=== PATIENT | male | born 1955 | race Caucasian/White ===

== ENCOUNTER → 2019-06-16 | Outpatient (CLI) | payer MEDICARE ==
[2019-06-16 13:52] LABS: Basophils # (auto) 0.1 uL; Basophils % (auto) 1.2 % (0.0-2.0); Eosinophils # (auto) 0.1 uL; Eosinophils % (auto) 1.5 % (0.0-7.0); Hematocrit 44.1 % (41.0-53.0); Hemoglobin 15.2 g/dL (13.5-17.5); Lymphocytes # (auto) 1.7 uL; Lymphocytes % (auto) 26.4 % (10.0-50.0); Mean Corpuscular Hemoglobin 30.8 pg (28.0-32.0); Mean Corpuscular Hgb Conc. 34.4 g/dL (32.0-36.0); Mean Corpuscular Volume 89.6 fL (80.0-100.0); Monocytes # (auto) 0.6 uL; Monocytes % (auto) 8.5 % (0.0-12.0); Neutrophils # (auto) 4.1 uL; Neutrophils % (auto) 62.4 % (37.0-80.0); Platelet Count (auto) 225 10^3/uL (140-450); Red Blood Cells 4.92 10^6/uL (4.5-5.90); Red Cell Distribution Width 13.6 % (11.8-14.3); White Blood Cell 6.5 10^3/uL (4.4-10.8)
[2019-06-16 14:33] LABS: Albumin 3.9 g/dL (3.4-5.0); Calcium 8.7 mg/dL (8.5-10.1); Potassium 3.7 mmol/L (3.5-5.1)
[2019-06-16 14:38] LABS: BUN/Creatinine Ratio 12.4; Bilirubin, Total 0.7 mg/dL (0.2-1.0); Total Protein 7.7 g/dL (6.4-8.2)
== END | disposition home or self-care (01) ==
LOC: LAB 13:19
PROVIDERS: ATTEND Internal Medicine
DX: N40.1 Benign prostatic hyperplasia with lower urinary tract symptoms (principal); E78.5 Hyperlipidemia, unspecified; K21.9 Gastro-esophageal reflux disease without esophagitis
CPT/HCPCS: 36415; 80053; 80061; 84153; 84443; 85025

== ENCOUNTER → 2019-06-23 | Outpatient (CLI) | payer MEDICARE | END | disposition home or self-care (01) | LOC: LAB 13:43 | PROVIDERS: ATTEND Internal Medicine | DX: E78.5 Hyperlipidemia, unspecified (principal); N40.0 Benign prostatic hyperplasia without lower urinary tract symptoms; K21.9 Gastro-esophageal reflux disease without esophagitis | CPT/HCPCS: 82270 ==

== ENCOUNTER 2021-03-08 11:30 | Inpatient (IN) | payer OTHER ==
[~2021-03-08] VITALS: Ht 177.8 cm; Wt 79.6 kg
[2021-03-08] MEDS ORDERED: ONDANSETRON HCL 4 MG/2 ML VIAL IV ONE (11:45)
[2021-03-08] MEDS ORDERED: SODIUM CHLORIDE 0.9% 500 ML IVB ONE (11:45)
[2021-03-08] MEDS ORDERED: MORPHINE SULFATE 4 MG/ML SYR/VIAL IV ONE (11:45)
[2021-03-08] MEDS ORDERED: metroNIDAZOLE 500MG/100ML 100 ML IV ONE (12:15)
[2021-03-08 12:25] LABS: Basophils # (auto) 0 10 ^3/uL (0-0.2); Basophils % (auto) 0.1 % (0.0-2.0); Eosinophils # (auto) 0 10 ^3/uL (0-0.8); Hematocrit 44.2 % (41.0-53.0); Hemoglobin 15.1 g/dL (13.5-17.5); Lymphocytes # (auto) 0.9 10 ^3/uL (0.4-5.4); Lymphocytes % (auto) 4.5 % (10.0-50.0); Mean Corpuscular Hemoglobin 30.7 pg (28.0-32.0); Mean Corpuscular Hgb Conc. 34.2 g/dL (32.0-36.0); Mean Corpuscular Volume 89.6 fL (80.0-100.0); Monocytes # (auto) 1.2 10 ^3/uL (0-1.3); Monocytes % (auto) 6.2 % (0.0-12.0); Neutrophils # (auto) 17.9 10 ^3/uL (1.6-8.6); Neutrophils % (auto) 89.2 % (37.0-80.0); Nucleated Red Blood Cells % 0.1 %; Platelet Count (auto) 242 10^3/uL (140-450); Red Blood Cells 4.93 10^6/uL (4.5-5.90)
[2021-03-08 12:30] LABS: Albumin 4.1 g/dL (3.4-5.0); Potassium 3.7 mmol/L (3.5-5.1)
[2021-03-08 12:33] LABS: Bilirubin, Total 1.4 mg/dL (0.2-1.0); Total Protein 8.4 g/dL (6.4-8.2)
[2021-03-08 12:53] LABS: Urine Bacteria NONE SEEN /hpf (None Seen); Urine Blood Negative /uL (Negative); Urine Mucus FEW (None Seen); Urine Specific Gravity 1.024 (1.001-1.035); Urine WBC 2 /hpf (0 - 3)
[2021-03-08] MEDS ORDERED: OMEP10CA58 PO (13:05)
[2021-03-08] MEDS ORDERED: HYDROcodone-ACET 5/325MG TAB PO PRN (13:30)
[2021-03-08] MEDS ORDERED: ACETAMINOPHEN 325 MG TAB PO PRN (13:30)
[2021-03-08] MEDS: SODIUM CHLORIDE 0.9% 1,000 ML IV SCH ×2 (13:30→20:57)
[2021-03-08] MEDS ORDERED: MORPHINE SULF INJ 2 MG/ML SYRINGE 1ML IV PRN (13:30)
[2021-03-08] MEDS ORDERED: ONDANSETRON HCL 4 MG/2 ML VIAL IV PRN (13:30)
[2021-03-08] MEDS: cefTRIAXone 1GM/50ML D5W 50 ML IV SCH (15:00)
[2021-03-08 17:20] VITALS: BP 125/72
[2021-03-08 22:13] VITALS: BP 129/84
[2021-03-08] MEDS: metroNIDAZOLE 500MG/100ML 100 ML IV SCH (22:16)
[2021-03-09 05:02] VITALS: BP 121/83
[2021-03-09] MEDS: metroNIDAZOLE 500MG/100ML 100 ML IV SCH ×3 (05:35→20:58)
[2021-03-09] MEDS: SODIUM CHLORIDE 0.9% 1,000 ML IV SCH ×3 (05:35→18:19)
[2021-03-09 07:12] LABS: Basophils # (auto) 0 10 ^3/uL (0-0.2); Basophils % (auto) 0.1 % (0.0-2.0); Eosinophils # (auto) 0 10 ^3/uL (0-0.8); Eosinophils % (auto) 0.1 % (0.0-7.0); Hematocrit 37.3 % (41.0-53.0); Hemoglobin 12.9 g/dL (13.5-17.5); Lymphocytes # (auto) 1.4 10 ^3/uL (0.4-5.4); Mean Corpuscular Hgb Conc. 34.5 g/dL (32.0-36.0); Monocytes # (auto) 1.2 10 ^3/uL (0-1.3); Monocytes % (auto) 7.5 % (0.0-12.0); Neutrophils % (auto) 83.3 % (37.0-80.0); Platelet Count (auto) 194 10^3/uL (140-450); Red Blood Cells 4.14 10^6/uL (4.5-5.90); Red Cell Distribution Width 13.5 % (11.8-14.3); White Blood Cell 15.6 10^3/uL (4.4-10.8)
[2021-03-09 07:28] LABS: BUN/Creatinine Ratio 17.1; Potassium 3.6 mmol/L (3.5-5.1)
[2021-03-09 08:00] VITALS: BP 113/66
[2021-03-09 09:00] VITALS: BP 113/66
[2021-03-09] MEDS: cefTRIAXone 1GM/50ML D5W 50 ML IV SCH (09:16)
[2021-03-09] MEDS: PANTOPRAZOLE 40 MG/10 ML VIAL INJ IV SCH (10:25)
[2021-03-09 13:00] VITALS: BP 123/75
[2021-03-09 16:12] VITALS: BP 128/75
[2021-03-09 22:00] VITALS: BP 140/64
[2021-03-10] MEDS: SODIUM CHLORIDE 0.9% 1,000 ML IV SCH ×2 (05:09→13:30)
[2021-03-10 05:24] VITALS: BP 134/71
[2021-03-10] MEDS: metroNIDAZOLE 500MG/100ML 100 ML IV SCH ×2 (05:54→13:44)
[2021-03-10 07:05] LABS: Basophils # (auto) 0 10 ^3/uL (0-0.2); Basophils % (auto) 0.4 % (0.0-2.0); Eosinophils # (auto) 0.1 10 ^3/uL (0-0.8); Hematocrit 35.9 % (41.0-53.0); Hemoglobin 12.5 g/dL (13.5-17.5); Lymphocytes # (auto) 1.4 10 ^3/uL (0.4-5.4); Lymphocytes % (auto) 13.4 % (10.0-50.0); Mean Corpuscular Hgb Conc. 34.7 g/dL (32.0-36.0); Mean Corpuscular Volume 89.3 fL (80.0-100.0); Monocytes # (auto) 0.9 10 ^3/uL (0-1.3); Monocytes % (auto) 8.5 % (0.0-12.0); Neutrophils # (auto) 7.8 10 ^3/uL (1.6-8.6); Neutrophils % (auto) 76.7 % (37.0-80.0); Platelet Count (auto) 199 10^3/uL (140-450); Red Blood Cells 4.02 10^6/uL (4.5-5.90); Red Cell Distribution Width 13.6 % (11.8-14.3); White Blood Cell 10.1 10^3/uL (4.4-10.8)
[2021-03-10 07:20] LABS: Calcium 7.7 mg/dL (8.5-10.1); Potassium 3.6 mmol/L (3.5-5.1)
[2021-03-10 07:24] LABS: BUN/Creatinine Ratio 12.5
[2021-03-10 08:00] VITALS: BP 130/69
[2021-03-10] MEDS: cefTRIAXone 1GM/50ML D5W 50 ML IV SCH (08:52)
[2021-03-10 09:00] VITALS: BP 130/69
[2021-03-10] MEDS: PANTOPRAZOLE 40 MG/10 ML VIAL INJ IV SCH (10:28)
[2021-03-10 12:51] VITALS: BP 132/69
[2021-03-10 14:39] VITALS: BP 132/69
== END 2021-03-10 16:35 | disposition home or self-care (01) | DRG 392 ==
LOC: ER 11:30 → OVERFLOW 13:22 → OBSVTOIN 13:23 → WEST WING 17:38
PROVIDERS: ADMIT Internal Medicine; ATTEND Internal Medicine
DX: K57.32 Diverticulitis of large intestine without perforation or abscess without bleeding (principal); K80.20 Calculus of gallbladder without cholecystitis without obstruction; K21.9 Gastro-esophageal reflux disease without esophagitis; Z20.822 Contact with and (suspected) exposure to COVID-19; D72.829 Elevated white blood cell count, unspecified; I70.8 Atherosclerosis of other arteries; K44.9 Diaphragmatic hernia without obstruction or gangrene; Z82.5 Family history of asthma and other chronic lower respiratory diseases; Z83.3 Family history of diabetes mellitus
CPT/HCPCS: 36415; 74176; 80048; 80053; 80061; 81001; 82306; 83036; 83690; 84484; 85025; 87426; 93005; C9113; G0378; J0696; J2405; J3490

== ENCOUNTER 2021-07-07 13:00 | Day surgery (SDC) | payer OTHER ==
[2021-07-04 14:48] LABS: Basophils # (auto) 0.1 10 ^3/uL (0-0.2); Basophils % (auto) 0.9 % (0.0-2.0); Eosinophils # (auto) 0.2 10 ^3/uL (0-0.8); Eosinophils % (auto) 2.2 % (0.0-7.0); Hemoglobin 14.6 g/dL (13.5-17.5); Lymphocytes # (auto) 1.9 10 ^3/uL (0.4-5.4); Lymphocytes % (auto) 25.7 % (10.0-50.0); Mean Corpuscular Hemoglobin 30.6 pg (28.0-32.0); Mean Corpuscular Hgb Conc. 34.8 g/dL (32.0-36.0); Mean Corpuscular Volume 87.9 fL (80.0-100.0); Monocytes # (auto) 0.7 10 ^3/uL (0-1.3); Monocytes % (auto) 9.1 % (0.0-12.0); Neutrophils # (auto) 4.7 10 ^3/uL (1.6-8.6); Neutrophils % (auto) 62.1 % (37.0-80.0); Nucleated Red Blood Cells % 0.1 %; Red Blood Cells 4.78 10^6/uL (4.5-5.90); Red Cell Distribution Width 13.6 % (11.8-14.3); White Blood Cell 7.5 10^3/uL (4.4-10.8)
[2021-07-04 15:16] LABS: Alanine Aminotransferase 31 U/L (16-61); Albumin 3.6 g/dL (3.4-5.0); Anion Gap 9 (5-15); Aspartate Aminotransferase 20 U/L (15-37); BUN/Creatinine Ratio 16.7; Blood Urea Nitrogen 15 mg/dL (7-18); Calcium 8.6 mg/dL (8.5-10.1); Carbon Dioxide 23 mmol/L (21-32); Chloride 109 mmol/L (98-107); GFR African American 108 mL/min; GFR Non-African American 89 mL/min; Glucose 102 mg/dL (74-106); Potassium 3.9 mmol/L (3.5-5.1); Sodium 141 mmol/L (136-145)
[2021-07-04 15:19] LABS: Alkaline Phosphatase 72 U/L (45-117); Bilirubin, Total 0.4 mg/dL (0.2-1.0); Total Protein 7.5 g/dL (6.4-8.2)
[~2021-07-07] VITALS: Ht 177.8 cm; Wt 74.8 kg
[~2021-07-07 13:00] MED LIST: OMEP10CA58 PO
[2021-07-07] MEDS ORDERED: SODIUM CHLORIDE LOCK 10 ML ONE (13:28)
[2021-07-07] MEDS: fentaNYL CITRATE 100 MCG/2 ML VL ONE ×2 (13:40→13:43)
[2021-07-07] MEDS: diphenhdrAMINE HCL 50 MG/1 ML VL ONE ×2 (13:40→13:43)
[2021-07-07] MEDS: MIDAZOLAM HCL 5 MG/ML-1ML VIAL ONE ×3 (13:40→13:46)
[2021-07-07 14:30] VITALS: BP 118/84
== END 2021-07-07 14:35 | disposition home or self-care (01) ==
LOC: GI 13:00
PROVIDERS: ATTEND Internal Medicine Gastroenterology
DX: Z12.11 Encounter for screening for malignant neoplasm of colon (principal); K57.30 Diverticulosis of large intestine without perforation or abscess without bleeding; K64.8 Other hemorrhoids; K52.89 Other specified noninfective gastroenteritis and colitis; K21.9 Gastro-esophageal reflux disease without esophagitis; Z98.890 Other specified postprocedural states; Z79.899 Other long term (current) drug therapy; Z20.822 Contact with and (suspected) exposure to COVID-19
CPT/HCPCS: 36415; 45380; 80053; 85025; 88305; J1200; J2250; J3010; J7030; U0003; 99152

== ENCOUNTER → 2021-12-08 | Outpatient (CLI) | payer OTHER ==
[2021-12-08 11:23] LABS: Basophils # (auto) 0.1 10 ^3/uL (0-0.2); Eosinophils # (auto) 0.2 10 ^3/uL (0-0.8); Eosinophils % (auto) 2.1 % (0.0-7.0); Hematocrit 43.4 % (41.0-53.0); Hemoglobin 15.3 g/dL (13.5-17.5); Lymphocytes # (auto) 1.9 10 ^3/uL (0.4-5.4); Lymphocytes % (auto) 24.3 % (10.0-50.0); Mean Corpuscular Hemoglobin 31.1 pg (28.0-32.0); Mean Corpuscular Hgb Conc. 35.2 g/dL (32.0-36.0); Mean Corpuscular Volume 88.5 fL (80.0-100.0); Monocytes # (auto) 0.7 10 ^3/uL (0-1.3); Monocytes % (auto) 8.4 % (0.0-12.0); Neutrophils % (auto) 64.2 % (37.0-80.0); Red Blood Cells 4.91 10^6/uL (4.5-5.90); Red Cell Distribution Width 13.6 % (11.8-14.3); White Blood Cell 7.8 10^3/uL (4.4-10.8)
[2021-12-08 11:59] LABS: Albumin 4.2 g/dL (3.4-5.0); Calcium 9.3 mg/dL (8.5-10.1)
[2021-12-08 12:03] LABS: BUN/Creatinine Ratio 15.4; Bilirubin, Total 0.9 mg/dL (0.2-1.0); Total Protein 8.1 g/dL (6.4-8.2)
== END | disposition home or self-care (01) ==
LOC: LAB 09:33
PROVIDERS: ATTEND Internal Medicine
DX: E78.5 Hyperlipidemia, unspecified (principal); Z68.25 Body mass index [BMI] 25.0-25.9, adult
CPT/HCPCS: 36415; 80053; 80061; 83036; 84153; 84443; 85025

== ENCOUNTER → 2021-12-14 | Outpatient (CLI) | payer OTHER | END | disposition home or self-care (01) | LOC: LAB 14:23 | PROVIDERS: ATTEND Internal Medicine | DX: E78.5 Hyperlipidemia, unspecified (principal); Z68.25 Body mass index [BMI] 25.0-25.9, adult | CPT/HCPCS: 82270 ==

== ENCOUNTER 2022-07-18 14:13 | Emergency (ER) | payer OTHER ==
[~2022-07-18] VITALS: Ht 175.3 cm; Wt 78.0 kg
[2022-07-18 15:22] VITALS: BP 131/73
[2022-07-18] MEDS ORDERED: ACE3T PO (16:23)
[2022-07-18] MEDS ORDERED: CYCL-837 PO (16:23)
[2022-07-18] MEDS: KETOROLAC TROMETH 60MG/2ML VIAL IM ONE (16:23)
== END 2022-07-18 16:36 | disposition home or self-care (01) ==
LOC: ER 14:13
DX: S39.012A Strain of muscle, fascia and tendon of lower back, initial encounter (principal); X50.1XXA Overexertion from prolonged static or awkward postures, initial encounter; Y93.89 Activity, other specified; Y92.89 Other specified places as the place of occurrence of the external cause; Y99.8 Other external cause status; Z90.89 Acquired absence of other organs
CPT/HCPCS: 72100; 96372; 99283; J1885

== ENCOUNTER → 2022-09-24 | Outpatient (CLI) | payer OTHER ==
[~2022-09-24] MED LIST changes: +ACE3T PO; +CYCL-837 PO
== END | disposition home or self-care (01) ==
LOC: XYW 13:39
PROVIDERS: ATTEND Internal Medicine
DX: I35.0 Nonrheumatic aortic (valve) stenosis (principal); R07.89 Other chest pain
CPT/HCPCS: 93306

== ENCOUNTER → 2022-10-03 | Outpatient (CLI) | payer OTHER | END | disposition home or self-care (01) | LOC: XY 08:37 | PROVIDERS: ATTEND Internal Medicine | DX: R09.89 Other specified symptoms and signs involving the circulatory and respiratory systems (principal) | CPT/HCPCS: 93886 ==

== ENCOUNTER 2022-10-09 06:20 | Inpatient (IN) | payer OTHER ==
[2022-10-05 10:31] LABS: Urine WBC None Seen /hpf (0 - 3)
[2022-10-05 10:34] LABS: Basophils # (auto) 0.1 10 ^3/uL (0-0.2); Eosinophils # (auto) 0.1 10 ^3/uL (0-0.8); Eosinophils % (auto) 2.2 % (0.0-7.0); Hematocrit 43.2 % (41.0-53.0); Hemoglobin 14.8 g/dL (13.5-17.5); Lymphocytes # (auto) 1.8 10 ^3/uL (0.4-5.4); Mean Corpuscular Hemoglobin 30.6 pg (28.0-32.0); Mean Corpuscular Hgb Conc. 34.2 g/dL (32.0-36.0); Mean Corpuscular Volume 89.4 fL (80.0-100.0); Monocytes # (auto) 0.6 10 ^3/uL (0-1.3); Monocytes % (auto) 8.9 % (0.0-12.0); Neutrophils # (auto) 3.9 10 ^3/uL (1.6-8.6); Neutrophils % (auto) 59.9 % (37.0-80.0); Nucleated Red Blood Cells % 0.3 %; Red Blood Cells 4.83 10^6/uL (4.5-5.90); Red Cell Distribution Width 14.4 % (11.8-14.3); White Blood Cell 6.4 10^3/uL (4.4-10.8)
[2022-10-05 10:47] LABS: INR 1.02 (0.9-1.15); Partial Thromboplastin Time 27.8 sec (24.6-33.4); Urine Bacteria FEW /hpf (None Seen); Urine Blood Negative /uL (Negative); Urine Mucus FEW (None Seen); Urine Specific Gravity 1.024 (1.001-1.035)
[2022-10-05 11:10] LABS: Albumin 4.1 g/dL (3.4-5.0)
[2022-10-05 11:13] LABS: BUN/Creatinine Ratio 12.1; Bilirubin, Total 0.6 mg/dL (0.2-1.0); Total Protein 7.7 g/dL (6.4-8.2)
[~2022-10-09] VITALS: Ht 175.3 cm; Wt 83.6 kg
[~2022-10-09 06:20] MED LIST changes: +OMEP20TA PO
[2022-10-09] MEDS ORDERED: ceFAZolin 1GM/50ML 100 ML IV ONE (06:34)
[2022-10-09] MEDS: BUPIVACAINE 0.25% INJ 50ML VIAL ONE ×2 (06:43→08:10)
[2022-10-09] MEDS ORDERED: VANCOMYCIN HCL 1000 MG VL ONE (06:44)
[2022-10-09] MEDS ORDERED: TRANEXAMIC ACID 20 ML ONE (06:44)
[2022-10-09] MEDS: MORPHINE SULFATE 4 MG/ML SYR/VIAL ONE ×2 (06:59→08:13)
[2022-10-09] MEDS ORDERED: KETOROLAC TROMETH 30 MG/ML 1ML VIAL ONE ×2 (06:59→08:08)
[2022-10-09] MEDS ORDERED: SUGAMMADEX 200mg/2ml Vial (100MG/ML) IV ONE (07:18)
[2022-10-09] MEDS ORDERED: PHENYLEPHRINE HCL 10 MG/ML VL ONE (07:38)
[2022-10-09] MEDS ORDERED: SODIUM CHLORIDE LOCK 20 ML ONE (07:38)
[2022-10-09] MEDS ORDERED: ePHEDrine SULFATE 50 MG/ML AMP ONE (07:53)
[2022-10-09] MEDS ORDERED: SODIUM CHLORIDE LOCK 10 ML ONE (07:53)
[2022-10-09] MEDS ORDERED: ONDANSETRON HCL 4 MG/2 ML VIAL ONE (08:08)
[2022-10-09] MEDS ORDERED: LIDOCAINE 1% (LOCAL ANESTH.) PF 5ml SDV ONE (08:08)
[2022-10-09] MEDS ORDERED: LIDOCAINE 2% (LOCAL ANESTH.) PF 5ml SDV ONE (08:08)
[2022-10-09] MEDS ORDERED: GLYCOPYRROLATE 0.2 MG/ML 1ML VIAL ONE (08:08)
[2022-10-09] MEDS ORDERED: PROPOFOL 10 MG/ML 20 ML IV ONE (08:08)
[2022-10-09] MEDS ORDERED: DexAMETHasone SOD PHOS 10MG/1ML VIAL INJ ONE (08:08)
[2022-10-09] MEDS ORDERED: fentaNYL CITRATE 100 MCG/2 ML VL ONE (08:36)
[2022-10-09] MEDS ORDERED: ONDANSETRON HCL 4 MG/2 ML VIAL IV PRN (10:30)
[2022-10-09] MEDS ORDERED: MORPHINE SULFATE INJ 2 MG/ml SYRG IV PRN (10:30)
[2022-10-09] MEDS ORDERED: HYDROmorphone HCL 2 MG/ML VL/or syr IV PRN (10:30)
[2022-10-09] MEDS ORDERED: NITROGLYCERIN 0.4 MG SL TAB SL PRN (10:30)
[2022-10-09 11:02] LABS: Hematocrit 40.7 % (41.0-53.0); Hemoglobin 13.9 g/dL (13.5-17.5)
[2022-10-09 11:15] LABS: BUN/Creatinine Ratio 10.8; Calcium 8.5 mg/dL (8.5-10.1); Potassium 4.5 mmol/L (3.5-5.1)
[2022-10-09] MEDS: CLINDAMYCIN 600MG IV 50 ML IV SCH ×2 (14:05→19:17)
[2022-10-09] MEDS: LACTATED RINGER'S 1,000 ML IV SCH (15:25)
[2022-10-09] MEDS: ceFAZolin 1GM/50ML 50 ML IV SCH ×2 (15:25→22:23)
[2022-10-09 17:00] VITALS: BP 125/86
[2022-10-09 22:00] VITALS: BP 120/81
[2022-10-09] MEDS: DOCUSATE SOD 100 MG CAP PO SCH (22:23)
[2022-10-10] MEDS: LACTATED RINGER'S 1,000 ML IV SCH ×2 (00:05→06:30)
[2022-10-10] MEDS: CLINDAMYCIN 600MG IV 50 ML IV SCH (01:09)
[2022-10-10] MEDS: HYDROcodone-ACET 5/325MG TAB PO PRN ×2 (01:10→09:02)
[2022-10-10] MEDS: ceFAZolin 1GM/50ML 50 ML IV SCH (03:30)
[2022-10-10 05:00] VITALS: BP 132/78
[2022-10-10] MEDS ORDERED: HYDR1TAB97 PO (07:39)
[2022-10-10] MEDS ORDERED: ASPI-498 OR (07:39)
[2022-10-10 09:00] VITALS: BP 123/83
[2022-10-10] MEDS: DOCUSATE SOD 100 MG CAP PO SCH (09:01)
[2022-10-10 13:00] VITALS: BP 121/74
[2022-10-10 13:18] VITALS: BP 121/74
== END 2022-10-10 14:26 | disposition home or self-care (01) | DRG 483 ==
LOC: SUR 06:20 → OVERFLOW 10:24 → EAST 16:39
PROVIDERS: ADMIT Orthopaedic Surgery Sports Medicine; ATTEND Orthopaedic Surgery Sports Medicine
PROC: BP181ZZ Fluoroscopy of Right Shoulder using Low Osmolar Contrast (ICD-10-PCS; 2022-10-09)
PROC: 0RRJ00Z Replacement of Right Shoulder Joint with Reverse Ball and Socket Synthetic Substitute, Open Approach (ICD-10-PCS; principal; 2022-10-09 07:19)
DX: M19.011 Primary osteoarthritis, right shoulder (principal); G89.29 Other chronic pain; Z20.822 Contact with and (suspected) exposure to COVID-19; K21.9 Gastro-esophageal reflux disease without esophagitis
CPT/HCPCS: 36415; 73020; 73030; 76000; 80048; 80053; 81001; 85014; 85018; 85025; 85610; 85730; 86850; 86900; 86901; 97163; G0378; J0690; J1100; J1885; J2001; J2405; J2704; J3490

== ENCOUNTER 2022-10-20 18:25 | Emergency (ER) | payer OTHER ==
[~2022-10-20] VITALS: Ht 175.3 cm; Wt 77.2 kg
[~2022-10-20 18:25] MED LIST changes: +ASPI-498 OR; +HYDR1TAB97 PO
[2022-10-20 18:37] VITALS: BP 148/81
[2022-10-20] MEDS ORDERED: KETOROLAC TROMETH 60MG/2ML VIAL IM ONE (19:00)
[2022-10-20] MEDS ORDERED: methylPREDNISolone SOD SUCC 125 MG/2 ML VL IM ONE (19:00)
[2022-10-20] MEDS ORDERED: diazePAM 5 MG TAB PO ONE ×2 (19:45)
[2022-10-20] MEDS ORDERED: CYCL-839 PO (20:47)
== END 2022-10-20 20:50 | disposition home or self-care (01) ==
LOC: EDBD 18:25 → ER 18:25
DX: S33.5XXA Sprain of ligaments of lumbar spine, initial encounter (principal); M54.16 Radiculopathy, lumbar region; K21.9 Gastro-esophageal reflux disease without esophagitis; Z90.89 Acquired absence of other organs; Z79.82 Long term (current) use of aspirin; Z79.899 Other long term (current) drug therapy; X58.XXXA Exposure to other specified factors, initial encounter; Y93.89 Activity, other specified; Y92.89 Other specified places as the place of occurrence of the external cause; Y99.8 Other external cause status
CPT/HCPCS: 96372; 99284; J1885; J2930

== ENCOUNTER 2022-10-23 12:42 | Emergency (ER) | payer OTHER ==
[~2022-10-23] VITALS: Ht 175.3 cm; Wt 77.0 kg
[~2022-10-23 12:42] MED LIST changes: +CYCL-839 PO
[2022-10-23] MEDS ORDERED: ONDANSETRON HCL 4 MG/2 ML VIAL IM ONE (13:45)
[2022-10-23] MEDS ORDERED: HYDROmorphone HCL 2 MG/ML VL/or syr IM ONE (13:45)
[2022-10-23 15:54] VITALS: BP 121/80
== END 2022-10-23 16:14 | disposition home or self-care (01) ==
LOC: ER 12:42
DX: M54.16 Radiculopathy, lumbar region (principal); K21.9 Gastro-esophageal reflux disease without esophagitis; G89.29 Other chronic pain; Z47.1 Aftercare following joint replacement surgery; Z90.89 Acquired absence of other organs; Z79.82 Long term (current) use of aspirin; Z79.899 Other long term (current) drug therapy
CPT/HCPCS: 96372; 99284; J1170; J2405

== ENCOUNTER → 2022-11-07 | Outpatient (CLI) | payer OTHER ==
[2022-11-07 13:18] LABS: Basophils # (auto) 0 10 ^3/uL (0-0.2); Basophils % (auto) 0.7 % (0.0-2.0); Eosinophils # (auto) 0.2 10 ^3/uL (0-0.8); Eosinophils % (auto) 3.1 % (0.0-7.0); Hematocrit 41.8 % (41.0-53.0); Hemoglobin 14.6 g/dL (13.5-17.5); Lymphocytes # (auto) 1.6 10 ^3/uL (0.4-5.4); Lymphocytes % (auto) 25.8 % (10.0-50.0); Mean Corpuscular Hemoglobin 30.6 pg (28.0-32.0); Mean Corpuscular Hgb Conc. 34.9 g/dL (32.0-36.0); Mean Corpuscular Volume 87.7 fL (80.0-100.0); Monocytes # (auto) 0.5 10 ^3/uL (0-1.3); Monocytes % (auto) 8.6 % (0.0-12.0); Neutrophils # (auto) 3.8 10 ^3/uL (1.6-8.6); Neutrophils % (auto) 61.8 % (37.0-80.0); Nucleated Red Blood Cells % 0.2 %; Red Blood Cells 4.77 10^6/uL (4.5-5.90); Red Cell Distribution Width 13.6 % (11.8-14.3); White Blood Cell 6.1 10^3/uL (4.4-10.8)
[2022-11-07 13:29] LABS: Albumin 4.3 g/dL (3.4-5.0); Calcium 9.1 mg/dL (8.5-10.1); Potassium 3.9 mmol/L (3.5-5.1)
[2022-11-07 13:34] LABS: BUN/Creatinine Ratio 12.7; Total Protein 7.9 g/dL (6.4-8.2)
== END | disposition home or self-care (01) ==
LOC: LAB 12:25
PROVIDERS: ATTEND Internal Medicine
DX: N40.0 Benign prostatic hyperplasia without lower urinary tract symptoms (principal); E78.5 Hyperlipidemia, unspecified
CPT/HCPCS: 36415; 80053; 80061; 84153; 84443; 85025

== ENCOUNTER → 2022-11-12 | Outpatient (CLI) | payer OTHER | END | disposition home or self-care (01) | LOC: LAB 12:17 | PROVIDERS: ATTEND Internal Medicine | DX: E78.5 Hyperlipidemia, unspecified (principal); N40.0 Benign prostatic hyperplasia without lower urinary tract symptoms | CPT/HCPCS: 82270 ==

== ENCOUNTER → 2023-01-15 | Outpatient (CLI) | payer OTHER ==
[2023-01-15 10:03] VITALS: BP 152/87
== END | disposition home or self-care (01) ==
LOC: XYW 08:56
PROVIDERS: ATTEND Internal Medicine
DX: Z01.810 Encounter for preprocedural cardiovascular examination (principal); R07.89 Other chest pain; I70.0 Atherosclerosis of aorta; R09.89 Other specified symptoms and signs involving the circulatory and respiratory systems; M19.011 Primary osteoarthritis, right shoulder
CPT/HCPCS: 78452; 93017; A9500

== ENCOUNTER → 2023-09-25 | Outpatient (CLI) | payer OTHER ==
[~2023-09-25] MED LIST changes: +OMEP10CA5 PO; -OMEP10CA58 PO
[2023-09-25 12:13] LABS: Alanine Aminotransferase 36 U/L (7-40); Albumin 4.5 g/dL (3.2-4.8); Alkaline Phosphatase 86 U/L (46-116); Anion Gap 6 (5-15); Aspartate Aminotransferase 29 U/L (13-40); BUN/Creatinine Ratio 12.4 (10.0-20.0); Blood Urea Nitrogen 12 mg/dL (9-23); Calcium 9.5 mg/dL (8.5-10.1); Carbon Dioxide 28 mmol/L (20-30); Chloride 108 mmol/L (98-107); Glucose 96 mg/dL (74-106); LDL Cholesterol 56 mg/dL (< 100); Potassium 4.1 mmol/L (3.5-5.1); Sodium 142 mmol/L (136-145); Triglycerides 52 mg/dL (< 150)
[2023-09-25 12:14] LABS: Bilirubin, Total 0.9 mg/dL (0.2-1.0); Cholesterol 101 mg/dL (< 200); Creatine Kinase IFCC 36 U/L (46-171); HDL Cholesterol 36 mg/dL (40-59); Total Protein 7.3 g/dL (5.7-8.2)
== END | disposition home or self-care (01) ==
LOC: LAB 11:21
PROVIDERS: ATTEND Internal Medicine
DX: E78.5 Hyperlipidemia, unspecified (principal); R94.4 Abnormal results of kidney function studies
CPT/HCPCS: 36415; 80053; 80061; 82550; 83036

== ENCOUNTER → 2023-12-12 | Outpatient (CLI) | payer OTHER ==
[2023-12-12 09:58] LABS: Basophils # (auto) 0 10 ^3/uL (0-0.2); Basophils % (auto) 0.8 % (0.0-2.0); Eosinophils # (auto) 0.1 10 ^3/uL (0-0.8); Eosinophils % (auto) 1.8 % (0.0-7.0); Hematocrit 42.8 % (41.0-53.0); Hemoglobin 14.7 g/dL (13.5-17.5); Lymphocytes # (auto) 1.5 10 ^3/uL (0.4-5.4); Lymphocytes % (auto) 24.3 % (10.0-50.0); Mean Corpuscular Hemoglobin 30.8 pg (28.0-32.0); Mean Corpuscular Hgb Conc. 34.4 g/dL (32.0-36.0); Mean Corpuscular Volume 89.5 fL (80.0-100.0); Monocytes # (auto) 0.5 10 ^3/uL (0-1.3); Neutrophils % (auto) 65.1 % (37.0-80.0); Red Blood Cells 4.78 10^6/uL (4.5-5.90); White Blood Cell 6.1 10^3/uL (4.4-10.8)
[2023-12-12 10:58] LABS: Erythrocyte Sedimentation Rate 5 mm/hr (0-20)
[2023-12-12 11:22] LABS: Prostate Specific Antigen 0.65 ng/mL (0.0-4.0)
[2023-12-12 11:26] LABS: Alanine Aminotransferase 37 U/L (7-40); Alkaline Phosphatase 82 U/L (46-116); Anion Gap 7 (5-15); BUN/Creatinine Ratio 12.2 (10.0-20.0); Blood Urea Nitrogen 12 mg/dL (9-23); CRP High Sensitivity 0.09 mg/dL (<1.0); Calcium 9.5 mg/dL (8.5-10.1); Carbon Dioxide 27 mmol/L (20-30); Chloride 108 mmol/L (98-107); Free T4 (Free Thyroxine) 0.87 ng/dL (0.89-1.76); Glucose 99 mg/dL (74-106); LDL Cholesterol 50 mg/dL (< 100); Potassium 4.1 mmol/L (3.5-5.1); Sodium 142 mmol/L (136-145); T3 Total 1.27 ng/mL (0.60-1.81); Triglycerides 46 mg/dL (< 150)
[2023-12-12 11:27] LABS: Albumin 4.4 g/dL (3.2-4.8); Aspartate Aminotransferase 31 U/L (13-40); Cholesterol 98 mg/dL (< 200); HDL Cholesterol 41 mg/dL (40-59)
[2023-12-12 11:28] LABS: Bilirubin, Total 1.2 mg/dL (0.2-1.0); Total Protein 6.9 g/dL (5.7-8.2)
[2023-12-12 11:50] LABS: Magnesium 2.1 mg/dL (1.6-2.6)
== END | disposition home or self-care (01) ==
LOC: LAB 09:33
PROVIDERS: ATTEND Nurse Practitioner Gerontology
DX: Z00.01 Encounter for general adult medical examination with abnormal findings (principal); Z29.9 Encounter for prophylactic measures, unspecified; Z13.1 Encounter for screening for diabetes mellitus
CPT/HCPCS: 36415; 80053; 80061; 83036; 83735; 83970; 84153; 84439; 84443; 84480; 85025; 85652; 86141

== ENCOUNTER → 2023-12-18 | Outpatient (CLI) | payer OTHER | END | disposition home or self-care (01) | LOC: LAB 13:06 | PROVIDERS: ATTEND Nurse Practitioner Gerontology | DX: Z00.01 Encounter for general adult medical examination with abnormal findings (principal); Z29.9 Encounter for prophylactic measures, unspecified; Z13.1 Encounter for screening for diabetes mellitus | CPT/HCPCS: 82270 ==

== ENCOUNTER → 2024-03-12 | Outpatient (CLI) | payer OTHER ==
[~2024-03-12] MED LIST changes: +ASCO500T11 PO; +ATOR20TA50 PO; +LEVO750T40 PO; +METR-344 PO; +PROB1CHW27 PO
[2024-03-12 10:37] LABS: Alanine Aminotransferase 30 U/L (7-40); Albumin 4.6 g/dL (3.2-4.8); Alkaline Phosphatase 91 U/L (46-116); Anion Gap 2 (5-15); Aspartate Aminotransferase 25 U/L (13-40); BUN/Creatinine Ratio 11.2 (10.0-20.0); Blood Urea Nitrogen 12 mg/dL (9-23); Calcium 9.4 mg/dL (8.5-10.1); Carbon Dioxide 29 mmol/L (20-30); Chloride 110 mmol/L (98-107); Glucose 100 mg/dL (74-106); LDL Cholesterol 57 mg/dL (< 100); Sodium 141 mmol/L (136-145); Triglycerides 38 mg/dL (< 150)
[2024-03-12 10:38] LABS: Bilirubin, Total 0.8 mg/dL (0.2-1.0); Cholesterol 104 mg/dL (< 200); HDL Cholesterol 39 mg/dL (40-59); Total Protein 7.6 g/dL (5.7-8.2)
[2024-03-12 10:40] LABS: Free T3 3.41 pg/mL (2.3-4.2); Free T4 (Free Thyroxine) 0.81 ng/dL (0.89-1.76)
[2024-03-12 12:33] LABS: Urine Blood Negative /uL (Negative); Urine Clarity Clear (Clear); Urine Color Light-Yellow (Yellow); Urine Protein, UAD Negative (Negative); Urine Specific Gravity 1.024 (1.001-1.035); Urine Urobilinogen Normal (Negative); Urine WBC 1 /hpf (0 - 3)
[2024-03-12 13:15] LABS: Urine Bacteria NONE SEEN /hpf (None Seen)
== END | disposition home or self-care (01) ==
LOC: LAB 10:05
PROVIDERS: ATTEND Internal Medicine
DX: E78.5 Hyperlipidemia, unspecified (principal); K21.9 Gastro-esophageal reflux disease without esophagitis; N18.2 Chronic kidney disease, stage 2 (mild); R79.89 Other specified abnormal findings of blood chemistry
CPT/HCPCS: 36415; 80053; 80061; 81001; 84439; 84443; 84481

== ENCOUNTER → 2024-03-27 | Outpatient (CLI) | payer OTHER ==
[~2024-03-27] MED LIST changes: -ASCO500T11 PO; -ATOR20TA50 PO; -LEVO750T40 PO; -METR-344 PO; -PROB1CHW27 PO
== END | disposition home or self-care (01) ==
LOC: LAB 14:35
PROVIDERS: ATTEND Family Medicine
DX: D48.5 Neoplasm of uncertain behavior of skin (principal)

== ENCOUNTER 2024-04-19 11:35 | Inpatient (IN) | payer OTHER ==
[~2024-04-19] VITALS: Ht 175.3 cm; Wt 78.7 kg
[2024-04-19 12:09] VITALS: PULSE 86; RESP 20; O2SAT 96
[2024-04-19 12:40] LABS: Urine Bacteria None Seen /hpf (None Seen)
[2024-04-19 12:47] LABS: Urine Blood Negative /uL (Negative); Urine Clarity Clear (Clear); Urine Color Yellow (Yellow); Urine Mucus FEW (None Seen); Urine Protein, UAD Negative (Negative); Urine Specific Gravity 1.024 (1.001-1.035); Urine Urobilinogen Normal (Negative); Urine WBC 1 /hpf (0 - 3); Urine pH 5.5 (5.0-9.0)
[2024-04-19] MEDS: SODIUM CHLORIDE 0.9% 1,000 ML IV ONE (12:48)
[2024-04-19] MEDS: KETOROLAC TROMETH 30 MG/ML 1ML VIAL IV ONE (12:51)
[2024-04-19] MEDS: ONDANSETRON HCL 4 MG/2 ML VIAL IV ONE (12:51)
[2024-04-19] MEDS: HYDROmorphone HCL 2 MG/ML VL/or syr IV ONE (12:51)
[2024-04-19 13:00] LABS: Basophils # (auto) 0 10 ^3/uL (0-0.2); Basophils % (auto) 0.3 % (0.0-2.0); Eosinophils # (auto) 0 10 ^3/uL (0-0.8); Eosinophils % (auto) 0.1 % (0.0-7.0); Hematocrit 42.5 % (41.0-53.0); Hemoglobin 14.6 g/dL (13.5-17.5); Lymphocytes # (auto) 1.4 10 ^3/uL (0.4-5.4); Lymphocytes % (auto) 10.5 % (10.0-50.0); Mean Corpuscular Hemoglobin 31.2 pg (28.0-32.0); Mean Corpuscular Hgb Conc. 34.4 g/dL (32.0-36.0); Mean Corpuscular Volume 90.8 fL (80.0-100.0); Monocytes # (auto) 1.2 10 ^3/uL (0-1.3); Monocytes % (auto) 9.1 % (0.0-12.0); Neutrophils # (auto) 10.9 10 ^3/uL (1.6-8.6); Red Blood Cells 4.68 10^6/uL (4.5-5.90); Red Cell Distribution Width 13.9 % (11.8-14.3); White Blood Cell 13.7 10^3/uL (4.4-10.8)
[2024-04-19 13:16] LABS: Alanine Aminotransferase 20 U/L (7-40); Albumin 4.5 g/dL (3.2-4.8); Alkaline Phosphatase 95 U/L (46-116); Anion Gap 6 (5-15); Aspartate Aminotransferase 15 U/L (13-40); BUN/Creatinine Ratio 10.2 (10.0-20.0); Bilirubin, Total 1.4 mg/dL (0.2-1.0); Blood Urea Nitrogen 10 mg/dL (9-23); Calcium 9.4 mg/dL (8.5-10.1); Carbon Dioxide 27 mmol/L (20-30); Chloride 108 mmol/L (98-107); Glucose 95 mg/dL (74-106); Potassium 3.9 mmol/L (3.5-5.1); Sodium 141 mmol/L (136-145); Total Protein 7.3 g/dL (5.7-8.2)
[2024-04-19 13:20] LABS: INR 1.1 (0.9-1.15); Partial Thromboplastin Time 28.6 SEC (24.5-34.5); Prothrombin Time 11.6 sec (9.3-11.8)
[2024-04-19 13:30] LABS: Lipase 46 U/L (12-53)
[2024-04-19] MEDS: IOHEXOL 300 MG/ML 100ML BOTTLE IJ ONE (14:27)
[2024-04-19] MEDS: metroNIDAZOLE 500MG/100ML 100 ML IV ONE (15:18)
[2024-04-19] MEDS ORDERED: ATOR20TA50 PO (15:54)
[2024-04-19] MEDS ORDERED: MORPHINE SULFATE INJ 2 MG/ml SYRG IV PRN (16:00)
[2024-04-19] MEDS ORDERED: ACETAMINOPHEN 325 MG TAB PO PRN (16:00)
[2024-04-19] MEDS ORDERED: ONDANSETRON HCL 4 MG/2 ML VIAL IV PRN (16:00)
[2024-04-19 16:25] LABS: Triglycerides 59 mg/dL (< 150)
[2024-04-19 16:26] LABS: LDL Cholesterol 60 mg/dL (< 100)
[2024-04-19 16:27] LABS: Cholesterol 105 mg/dL (< 200); HDL Cholesterol 37 mg/dL (40-59)
[2024-04-19] MEDS: SODIUM CHLORIDE 0.9% 1,000 ML IV SCH (16:33)
[2024-04-19] MEDS: PIPERACILLIN-TAZOB 3.375GM 100 ML IV ONE (16:33)
[2024-04-19] MEDS: PANTOPRAZOLE 40 MG/10 ML VIAL INJ IV ONE (16:33)
[2024-04-19 17:18] VITALS: PULSE 72; RESP 17; O2SAT 97
[2024-04-19 17:40] VITALS: BP 136/83; PULSE 71; RESP 17; TEMP 98.4; O2SAT 97
[2024-04-19 21:00] VITALS: BP 125/76; PULSE 66; RESP 17; TEMP 98.3; O2SAT 97
[2024-04-19] MEDS: HYDROcodone-ACET 5/325MG TAB PO PRN (21:35)
[2024-04-19] MEDS: metroNIDAZOLE 500MG/100ML 100 ML IV SCH (21:41)
[2024-04-20 01:00] VITALS: BP 101/67; PULSE 64; RESP 17; TEMP 98; O2SAT 95
[2024-04-20 05:00] VITALS: BP 124/76; PULSE 65; RESP 18; TEMP 98; O2SAT 95
[2024-04-20 06:52] LABS: Basophils # (auto) 0 10 ^3/uL (0-0.2); Basophils % (auto) 0.4 % (0.0-2.0); Eosinophils # (auto) 0.1 10 ^3/uL (0-0.8); Eosinophils % (auto) 1.5 % (0.0-7.0); Hematocrit 36.8 % (41.0-53.0); Hemoglobin 12.9 g/dL (13.5-17.5); Lymphocytes # (auto) 1.3 10 ^3/uL (0.4-5.4); Lymphocytes % (auto) 13.7 % (10.0-50.0); Mean Corpuscular Hemoglobin 31.5 pg (28.0-32.0); Mean Corpuscular Volume 90.2 fL (80.0-100.0); Monocytes # (auto) 1.1 10 ^3/uL (0-1.3); Monocytes % (auto) 11.3 % (0.0-12.0); Neutrophils % (auto) 73.1 % (37.0-80.0); Red Blood Cells 4.09 10^6/uL (4.5-5.90); Red Cell Distribution Width 13.6 % (11.8-14.3); White Blood Cell 9.6 10^3/uL (4.4-10.8)
[2024-04-20 07:08] LABS: Alanine Aminotransferase 15 U/L (7-40); Albumin 3.7 g/dL (3.2-4.8); Alkaline Phosphatase 73 U/L (46-116); Anion Gap 7 (5-15); Aspartate Aminotransferase 11 U/L (13-40); BUN/Creatinine Ratio 8.5 (10.0-20.0); Blood Urea Nitrogen 7 mg/dL (9-23); Calcium 8.7 mg/dL (8.7-10.4); Carbon Dioxide 24 mmol/L (20-30); Chloride 109 mmol/L (98-107); Glucose 89 mg/dL (74-106); Potassium 3.6 mmol/L (3.5-5.1); Sodium 140 mmol/L (136-145)
[2024-04-20 07:09] LABS: Bilirubin, Total 1.4 mg/dL (0.2-1.0); Total Protein 6.4 g/dL (5.7-8.2)
[2024-04-20] MEDS: ENOXAPARIN SOD 40 MG/0.4 ML SYRINGE SC SCH (08:24)
[2024-04-20] MEDS: PANTOPRAZOLE 40 MG/10 ML VIAL INJ IV SCH (08:24)
[2024-04-20] MEDS: ATORVASTATIN 20 MG TAB PO SCH (08:25)
[2024-04-20] MEDS: ASPirin-EC 81 mg tab PO SCH (08:25)
[2024-04-20 08:50] VITALS: BP 141/66; PULSE 66; RESP 18; TEMP 97.8; O2SAT 95
[2024-04-20 13:05] VITALS: BP 132/85; PULSE 61; RESP 20; TEMP 97.9; O2SAT 98
[2024-04-20] MEDS: PIPERACILLIN-TAZOB 3.375GM 100 ML IV SCH (13:34)
[2024-04-20] MEDS ORDERED: METR-344 PO (13:55)
[2024-04-20] MEDS ORDERED: LEVO750T40 PO (13:55)
[2024-04-20 14:35] VITALS: BP 132/85; PULSE 61; RESP 20; TEMP 97.9; O2SAT 98
[2024-04-20] MEDS ORDERED: ASCO500T11 PO (14:36)
[2024-04-20] MEDS ORDERED: PROB1CHW27 PO (14:36)
[2024-04-20 16:44] VITALS: BP 120/66; PULSE 68; RESP 18; TEMP 97.8; O2SAT 95
== END 2024-04-20 16:45 | disposition home or self-care (01) | DRG 392 ==
LOC: ER 11:35 → OVERFLOW 15:54 → WEST WING 17:19
PROVIDERS: ADMIT Internal Medicine; ATTEND Internal Medicine
DX: K57.32 Diverticulitis of large intestine without perforation or abscess without bleeding (principal); K21.9 Gastro-esophageal reflux disease without esophagitis; E78.5 Hyperlipidemia, unspecified; Z96.611 Presence of right artificial shoulder joint; Z83.3 Family history of diabetes mellitus; Z82.5 Family history of asthma and other chronic lower respiratory diseases; Z82.49 Family history of ischemic heart disease and other diseases of the circulatory system
CPT/HCPCS: 36415; 74177; 80053; 80061; 81001; 83605; 83690; 84484; 85025; 85610; 85730; 93005; 99291; C9113; G0378; J2543; J3490

== ENCOUNTER → 2024-06-02 | Outpatient (CLI) | payer OTHER ==
[~2024-06-02] MED LIST changes: -ACE3T PO; +ASCO500T11 PO; +ATOR20TA50 PO; -CYCL-837 PO; -CYCL-839 PO; -HYDR1TAB97 PO; +LEVO750T40 PO; +METR-344 PO; -OMEP20TA PO; +PROB1CHW27 PO
[2024-06-02 12:35] LABS: Basophils # (auto) 0.1 10 ^3/uL (0-0.2); Basophils % (auto) 0.9 % (0.0-2.0); Eosinophils # (auto) 0.2 10 ^3/uL (0-0.8); Eosinophils % (auto) 3.2 % (0.0-7.0); Hematocrit 41.4 % (41.0-53.0); Hemoglobin 14.5 g/dL (13.5-17.5); Lymphocytes # (auto) 1.7 10 ^3/uL (0.4-5.4); Lymphocytes % (auto) 26.5 % (10.0-50.0); Mean Corpuscular Hemoglobin 31.6 pg (28.0-32.0); Mean Corpuscular Volume 90.2 fL (80.0-100.0); Monocytes # (auto) 0.6 10 ^3/uL (0-1.3); Monocytes % (auto) 8.9 % (0.0-12.0); Neutrophils % (auto) 60.5 % (37.0-80.0); Nucleated Red Blood Cells % 0.2 %; Red Blood Cells 4.59 10^6/uL (4.5-5.90); White Blood Cell 6.6 10^3/uL (4.4-10.8)
[2024-06-02 13:21] LABS: Alanine Aminotransferase 32 U/L (7-40); Alkaline Phosphatase 75 U/L (46-116); Anion Gap 6 (5-15); BUN/Creatinine Ratio 12.2 (10.0-20.0); Blood Urea Nitrogen 11 mg/dL (9-23); Calcium 9.4 mg/dL (8.7-10.4); Carbon Dioxide 28 mmol/L (20-30); Chloride 110 mmol/L (98-107); Glucose 102 mg/dL (74-106); Potassium 3.8 mmol/L (3.5-5.1); Sodium 144 mmol/L (136-145)
[2024-06-02 13:22] LABS: Albumin 4.3 g/dL (3.2-4.8); Aspartate Aminotransferase 23 U/L (13-40); Bilirubin, Total 0.9 mg/dL (0.2-1.0)
== END | disposition home or self-care (01) ==
LOC: LAB 12:13
PROVIDERS: ATTEND Internal Medicine
DX: Z12.5 Encounter for screening for malignant neoplasm of prostate (principal); D64.9 Anemia, unspecified; R39.198 Other difficulties with micturition; E78.2 Mixed hyperlipidemia; R17 Unspecified jaundice
CPT/HCPCS: 36415; 80053; 84153; 85025

== ENCOUNTER → 2024-07-10 | Outpatient (CLI) | payer OTHER | END | disposition home or self-care (01) | LOC: XYW 08:56 | PROVIDERS: ATTEND Internal Medicine | DX: I35.1 Nonrheumatic aortic (valve) insufficiency (principal) | CPT/HCPCS: 93306 ==

== ENCOUNTER 2024-07-30 18:28 | Inpatient (IN) | payer OTHER ==
[~2024-07-30] VITALS: Ht 177.8 cm; Wt 82.0 kg
[2024-07-30] MEDS: ONDANSETRON HCL 4 MG/2 ML VIAL IV ONE (19:12)
[2024-07-30] MEDS: MORPHINE SULFATE 4 MG/ML SYR/VIAL IV ONE ×2 (19:16→22:09)
[2024-07-30 20:33] LABS: Basophils # (auto) 0 10 ^3/uL (0-0.2); Basophils % (auto) 0.3 % (0.0-2.0); Eosinophils # (auto) 0 10 ^3/uL (0-0.8); Eosinophils % (auto) 0.1 % (0.0-7.0); Hematocrit 42.5 % (41.0-53.0); Lymphocytes # (auto) 0.8 10 ^3/uL (0.4-5.4); Lymphocytes % (auto) 4.8 % (10.0-50.0); Mean Corpuscular Hemoglobin 31.4 pg (28.0-32.0); Mean Corpuscular Hgb Conc. 35.2 g/dL (32.0-36.0); Mean Corpuscular Volume 89.2 fL (80.0-100.0); Monocytes # (auto) 0.9 10 ^3/uL (0-1.3); Monocytes % (auto) 5.4 % (0.0-12.0); Neutrophils # (auto) 15.3 10 ^3/uL (1.6-8.6); Neutrophils % (auto) 89.4 % (37.0-80.0); Nucleated Red Blood Cells % 0.1 %; Platelet Count (auto) 227 10^3/uL (140-450); Red Blood Cells 4.77 10^6/uL (4.5-5.90); Red Cell Distribution Width 13.9 % (11.8-14.3); White Blood Cell 17.1 10^3/uL (4.4-10.8)
[2024-07-30 20:42] LABS: Chloride 110 mmol/L (98-107); Potassium 4.3 mmol/L (3.5-5.1); Sodium 143 mmol/L (136-145)
[2024-07-30 20:43] LABS: Anion Gap 8 (5-15); Carbon Dioxide 25 mmol/L (20-31)
[2024-07-30 20:44] LABS: Calcium 9.6 mg/dL (8.7-10.4)
[2024-07-30 20:47] LABS: INR 1.11 (0.9-1.15); Partial Thromboplastin Time 26.1 SEC (24.5-34.5); Prothrombin Time 11.7 sec (9.3-11.8)
[2024-07-30 20:48] LABS: Glucose 110 mg/dL (74-106)
[2024-07-30 20:49] LABS: BUN/Creatinine Ratio 13.3 (10.0-20.0); Blood Urea Nitrogen 14 mg/dL (9-23)
[2024-07-30] MEDS ORDERED: ACETAMINOPHEN 325 MG TAB PO PRN (23:30)
[2024-07-30] MEDS ORDERED: NITROGLYCERIN 0.4 MG SL TAB SL PRN (23:30)
[2024-07-30] MEDS ORDERED: DOCUSATE SOD 100 MG CAP PO PRN (23:30)
[2024-07-30] MEDS ORDERED: MORPHINE SULFATE INJ 2 MG/ml SYRG IV PRN (23:30)
[2024-07-30] MEDS ORDERED: ONDANSETRON HCL 4 MG/2 ML VIAL IV PRN (23:30)
[2024-07-31] MEDS: D5W/SOD CHL 0.45% 1,000 ML IV SCH (01:23)
[2024-07-31] MEDS: cefTRIAXone 1GM/50ML D5W 50 ML IV ONE (01:23)
[2024-07-31] MEDS: MORPHINE SULFATE INJ 2 MG/ml SYRG IV PRN (04:18)
[2024-07-31 04:42] VITALS: BP 118/68; PULSE 105; PULSE 84; RESP 18; TEMP 98.6; O2SAT 96; O2SAT 97
[2024-07-31 07:24] LABS: Alanine Aminotransferase 25 U/L (7-40); Albumin 4.5 g/dL (3.2-4.8); Alkaline Phosphatase 73 U/L (46-116); Anion Gap 7 (5-15); Aspartate Aminotransferase 23 U/L (13-40); BUN/Creatinine Ratio 10.6 (10.0-20.0); Blood Urea Nitrogen 10 mg/dL (9-23); Calcium 9.5 mg/dL (8.7-10.4); Carbon Dioxide 26 mmol/L (20-31); Chloride 107 mmol/L (98-107); Glucose 142 mg/dL (74-106); Sodium 140 mmol/L (136-145)
[2024-07-31 07:25] LABS: Bilirubin, Total 1.1 mg/dL (0.2-1.0); Total Protein 7.3 g/dL (5.7-8.2)
[2024-07-31 07:39] LABS: Basophils # (auto) 0 10 ^3/uL (0-0.2); Basophils % (auto) 0.2 % (0.0-2.0); Eosinophils # (auto) 0 10 ^3/uL (0-0.8); Eosinophils % (auto) 0.3 % (0.0-7.0); Hematocrit 42.7 % (41.0-53.0); Hemoglobin 14.9 g/dL (13.5-17.5); Lymphocytes # (auto) 1.2 10 ^3/uL (0.4-5.4); Lymphocytes % (auto) 9.3 % (10.0-50.0); Mean Corpuscular Hemoglobin 31.8 pg (28.0-32.0); Mean Corpuscular Hgb Conc. 34.9 g/dL (32.0-36.0); Mean Corpuscular Volume 90.9 fL (80.0-100.0); Monocytes # (auto) 1.2 10 ^3/uL (0-1.3); Monocytes % (auto) 9.2 % (0.0-12.0); Neutrophils # (auto) 10.2 10 ^3/uL (1.6-8.6); Platelet Count (auto) 204 10^3/uL (140-450); Red Cell Distribution Width 13.5 % (11.8-14.3); White Blood Cell 12.6 10^3/uL (4.4-10.8)
[2024-07-31] MEDS: ENOXAPARIN SOD 40 MG/0.4 ML SYRINGE SC SCH (10:00)
[2024-07-31] MEDS: cefTRIAXone 1GM/50ML D5W 50 ML IV SCH (10:10)
[2024-07-31] MEDS: FAMOTIDINE (10MG/ML) 2ML VL IV SCH (10:11)
[2024-07-31] MEDS: ATORVASTATIN 20 MG TAB PO ONE (11:00)
[2024-07-31] MEDS ORDERED: HYDROmorphone HCL 2 MG/ML VL/or syr IV PRN (13:30)
[2024-07-31 15:30] LABS: Urine Bacteria None Seen /hpf (None Seen)
[2024-07-31 15:36] LABS: Urine Blood Negative /uL (Negative); Urine Clarity Clear (Clear); Urine Color Light-Yellow (Yellow); Urine Mucus FEW (None Seen); Urine Protein, UAD Negative (Negative); Urine Specific Gravity 1.019 (1.001-1.035); Urine Urobilinogen Normal (Negative); Urine WBC 1 /hpf (0 - 3); Urine pH 5.5 (5.0-9.0)
[2024-07-31 17:16] VITALS: BP 137/84; PULSE 86; RESP 19; TEMP 98.8; O2SAT 97
[2024-07-31 20:00] VITALS: PULSE 89; RESP 18; O2SAT 98
[2024-07-31 20:58] VITALS: BP 131/80; PULSE 89; RESP 18; TEMP 98.7; O2SAT 95
[2024-07-31] MEDS: ATORVASTATIN 20 MG TAB PO SCH (21:36)
[2024-07-31] MEDS: HYDROcodone-ACET 5/325MG TAB PO PRN (23:32)
[2024-08-01] VITALS (20 sets, daily range): BP systolic 95–138; BP diastolic 71–124; PULSE 75–113; RESP 16–20; TEMP 97.6–98.6; O2SAT 92–100
[2024-08-01 08:00] LABS: Basophils # (auto) 0.1 10 ^3/uL (0-0.2); Basophils % (auto) 0.6 % (0.0-2.0); Eosinophils # (auto) 0.3 10 ^3/uL (0-0.8); Hematocrit 42.7 % (41.0-53.0); Hemoglobin 14.8 g/dL (13.5-17.5); Lymphocytes # (auto) 1.5 10 ^3/uL (0.4-5.4); Lymphocytes % (auto) 11.6 % (10.0-50.0); Mean Corpuscular Hgb Conc. 34.6 g/dL (32.0-36.0); Mean Corpuscular Volume 89.4 fL (80.0-100.0); Monocytes # (auto) 1.2 10 ^3/uL (0-1.3); Monocytes % (auto) 9.7 % (0.0-12.0); Neutrophils # (auto) 9.8 10 ^3/uL (1.6-8.6); Neutrophils % (auto) 76.1 % (37.0-80.0); Nucleated Red Blood Cells % 0.1 %; Platelet Count (auto) 198 10^3/uL (140-450); Red Blood Cells 4.78 10^6/uL (4.5-5.90); Red Cell Distribution Width 13.6 % (11.8-14.3); White Blood Cell 12.9 10^3/uL (4.4-10.8)
[2024-08-01] MEDS ORDERED: fentaNYL CITRATE 100 MCG/2 ML VL ONE (09:09)
[2024-08-01] MEDS ORDERED: PROPOFOL 10 MG/ML 20 ML IV ONE (09:09)
[2024-08-01] MEDS ORDERED: MIDAZOLAM HCL 2MG/2ML 2ml VIAL (1mg/ml) ONE (09:09)
[2024-08-01] MEDS ORDERED: fentaNYL CITRATE 100 MCG/2 ML VL IV PRN (09:15)
[2024-08-01] MEDS ORDERED: ONDANSETRON HCL 4 MG/2 ML VIAL IV ONE (09:15)
[2024-08-01] MEDS ORDERED: MORPHINE SULFATE INJ 2 MG/ml SYRG IV PRN (09:15)
[2024-08-01] MEDS ORDERED: MORPHINE SULF PF 5 MG/10 ML VIAL ONE (09:24)
[2024-08-01] MEDS: PANTOPRAZOLE 40 MG/10 ML VIAL INJ IV SCH (10:00)
[2024-08-01] MEDS ORDERED: ePHEDrine SULFATE 50 MG/ML AMP ONE (10:10)
[2024-08-01] MEDS ORDERED: ONDANSETRON HCL 4 MG/2 ML VIAL ONE (10:11)
[2024-08-01] MEDS ORDERED: DexAMETHasone SOD PHOS 10MG/1ML VIAL INJ ONE (10:11)
[2024-08-01] MEDS ORDERED: ceFAZolin 1GM VL ONE (10:15)
[2024-08-01] MEDS ORDERED: HYDROcodone-ACET 10/325MG TAB PO PRN (10:45)
[2024-08-01] MEDS ORDERED: diphenhdrAMINE HCL 50 MG/1 ML VL IV PRN (11:15)
[2024-08-01] MEDS ORDERED: NALOXONE HCL 0.4 MG/ML VIAL IV PRN (11:15)
[2024-08-01] MEDS ORDERED: KETOROLAC TROMETH 30 MG/ML 1ML VIAL IV PRN (11:15)
[2024-08-01] MEDS: SODIUM CHLOR 0.9% PF (SALINE LOCK) 10ML VIAL/SYR IV SCH (14:00)
[2024-08-01] MEDS: ceFAZolin 2 GM/D5W50ml 50 ML IV SCH (15:11)
[2024-08-01] MEDS: ONDANSETRON HCL 4 MG/2 ML VIAL IV PRN (20:07)
[2024-08-01] MEDS: PANTOPRAZOLE 40 MG/10 ML VIAL INJ IV ONE (20:16)
[2024-08-01] MEDS: LACTATED RINGER'S 1,000 ML IV SCH (20:45)
[2024-08-02] VITALS (15 sets, daily range): BP systolic 120–158; BP diastolic 80–91; PULSE 18–102; RESP 18–20; TEMP 36.8; O2SAT 92–98
[2024-08-02 06:53] LABS: Anion Gap 8 (5-15); Carbon Dioxide 25 mmol/L (20-31); Chloride 105 mmol/L (98-107); Potassium 4.4 mmol/L (3.5-5.1); Sodium 138 mmol/L (136-145)
[2024-08-02 06:54] LABS: Calcium 9.4 mg/dL (8.7-10.4)
[2024-08-02 06:59] LABS: BUN/Creatinine Ratio 10.9 (10.0-20.0); Blood Urea Nitrogen 10 mg/dL (9-23); Glucose 180 mg/dL (74-106)
[2024-08-02 07:27] LABS: Basophils # (auto) 0 10 ^3/uL (0-0.2); Basophils % (auto) 0.1 % (0.0-2.0); Eosinophils # (auto) 0 10 ^3/uL (0-0.8); Hematocrit 38.5 % (41.0-53.0); Hemoglobin 13.1 g/dL (13.5-17.5); Lymphocytes # (auto) 0.8 10 ^3/uL (0.4-5.4); Lymphocytes % (auto) 5.3 % (10.0-50.0); Mean Corpuscular Hemoglobin 30.7 pg (28.0-32.0); Mean Corpuscular Volume 90.2 fL (80.0-100.0); Monocytes # (auto) 1.6 10 ^3/uL (0-1.3); Monocytes % (auto) 10.7 % (0.0-12.0); Neutrophils # (auto) 12.6 10 ^3/uL (1.6-8.6); Neutrophils % (auto) 83.9 % (37.0-80.0); Platelet Count (auto) 202 10^3/uL (140-450); Red Blood Cells 4.27 10^6/uL (4.5-5.90); Red Cell Distribution Width 13.6 % (11.8-14.3); White Blood Cell 15.1 10^3/uL (4.4-10.8)
[2024-08-02] MEDS: ENOXAPARIN SOD 40 MG/0.4 ML SYRINGE SC SCH (10:00)
[2024-08-02] MEDS ORDERED: CEFD300C2 PO (12:05)
[2024-08-02] MEDS ORDERED: APIX5TAB PO (12:44)
[2024-08-02] MEDS ORDERED: TRAM-626 PO (12:44)
== END 2024-08-02 14:35 | disposition home or self-care (01) | DRG 481 ==
LOC: ER 18:28 → TELE 23:22 → TELE-CENTR 07-31 04:40
PROVIDERS: ADMIT Internal Medicine; ATTEND Internal Medicine
PROC: 0QS634Z Reposition Right Upper Femur with Internal Fixation Device, Percutaneous Approach (ICD-10-PCS; principal; 2024-08-01 09:21)
DX: S72.144A Nondisplaced intertrochanteric fracture of right femur, initial encounter for closed fracture (principal); J98.11 Atelectasis; D72.829 Elevated white blood cell count, unspecified; E78.5 Hyperlipidemia, unspecified; K21.9 Gastro-esophageal reflux disease without esophagitis; S72.011A Unspecified intracapsular fracture of right femur, initial encounter for closed fracture; Z82.49 Family history of ischemic heart disease and other diseases of the circulatory system; Z83.3 Family history of diabetes mellitus; Z96.611 Presence of right artificial shoulder joint; Z82.5 Family history of asthma and other chronic lower respiratory diseases; W01.0XXA Fall on same level from slipping, tripping and stumbling without subsequent striking against object, initial encounter; Y93.89 Activity, other specified; Y92.89 Other specified places as the place of occurrence of the external cause; Y99.8 Other external cause status; Z79.82 Long term (current) use of aspirin; Z79.899 Other long term (current) drug therapy
CPT/HCPCS: 36415; 71045; 73502; 73700; 76000; 80048; 80053; 81001; 83036; 84443; 85025; 85610; 85730; 86850; 86900; 86901; 93005; 97163; C1713; G0378; J0690; J1100; J2250; J2405; J2470; J2704; J3490

== ENCOUNTER → 2024-12-08 | Outpatient (CLI) | payer OTHER ==
[~2024-12-08] MED LIST changes: +APIX5TAB PO; +CEFD300C2 PO; +TRAM-626 PO
[2024-12-08 11:24] LABS: Urine Bacteria None Seen /hpf (None Seen)
[2024-12-08 12:05] LABS: Basophils # (auto) 0.1 10 ^3/uL (0-0.2); Basophils % (auto) 0.9 % (0.0-2.0); Eosinophils # (auto) 0.1 10 ^3/uL (0-0.8); Eosinophils % (auto) 1.2 % (0.0-7.0); Hematocrit 43.7 % (41.0-53.0); Hemoglobin 15.6 g/dL (13.5-17.5); Lymphocytes # (auto) 1.7 10 ^3/uL (0.4-5.4); Lymphocytes % (auto) 25.9 % (10.0-50.0); Mean Corpuscular Hemoglobin 31.6 pg (28.0-32.0); Mean Corpuscular Hgb Conc. 35.6 g/dL (32.0-36.0); Mean Corpuscular Volume 88.7 fL (80.0-100.0); Monocytes # (auto) 0.6 10 ^3/uL (0-1.3); Monocytes % (auto) 8.6 % (0.0-12.0); Neutrophils # (auto) 4.2 10 ^3/uL (1.6-8.6); Neutrophils % (auto) 63.4 % (37.0-80.0); Platelet Count (auto) 222 10^3/uL (140-450); Red Blood Cells 4.93 10^6/uL (4.5-5.90); Red Cell Distribution Width 14.1 % (11.8-14.3); White Blood Cell 6.6 10^3/uL (4.4-10.8)
[2024-12-08 12:36] LABS: Urine Blood Negative /uL (Negative); Urine Clarity Clear (Clear); Urine Color Yellow (Yellow); Urine Mucus FEW (None Seen); Urine Protein, UAD Negative (Negative); Urine Specific Gravity 1.023 (1.001-1.035); Urine Squamous Epithelial Cell FEW /hpf (<5); Urine Urobilinogen Normal (Negative); Urine WBC 1 /HPF (0-3)
[2024-12-08 13:18] LABS: Prostate Specific Antigen 0.71 ng/mL (0.0-4.0)
[2024-12-08 13:19] LABS: Alanine Aminotransferase 25 U/L (7-40); Albumin 4.8 g/dL (3.2-4.8); Alkaline Phosphatase 89 U/L (46-116); Anion Gap 8 (5-15); Aspartate Aminotransferase 25 U/L (13-40); BUN/Creatinine Ratio 12.6 (10.0-20.0); Blood Urea Nitrogen 12 mg/dL (9-23); Calcium 10.2 mg/dL (8.7-10.4); Carbon Dioxide 28 mmol/L (20-31); Chloride 107 mmol/L (98-107); Glucose 101 mg/dL (74-106); Potassium 3.9 mmol/L (3.5-5.1); Sodium 143 mmol/L (136-145)
[2024-12-08 13:20] LABS: Total Protein 7.5 g/dL (5.7-8.2)
[2024-12-08 13:41] LABS: Free T4 (Free Thyroxine) 0.93 ng/dL (0.89-1.76)
[2024-12-09 12:16] LABS: LDL Cholesterol 76 mg/dL (< 100); Triglycerides 73 mg/dL (< 150)
[2024-12-09 12:17] LABS: Cholesterol 127 mg/dL (< 200); HDL Cholesterol 43 mg/dL (40-59)
== END | disposition home or self-care (01) ==
LOC: LAB 11:10
PROVIDERS: ATTEND Internal Medicine
DX: Z00.01 Encounter for general adult medical examination with abnormal findings (principal); Z13.1 Encounter for screening for diabetes mellitus; N18.2 Chronic kidney disease, stage 2 (mild); M54.50 Low back pain, unspecified
CPT/HCPCS: 36415; 80053; 80061; 81001; 83036; 84153; 84439; 84443; 85025

== ENCOUNTER → 2025-04-29 | Outpatient (CLI) | payer OTHER ==
[2025-04-29 09:09] LABS: Hematocrit 45.4 % (41.0-53.0); Hemoglobin 15.5 g/dL (13.5-17.5); Mean Corpuscular Hemoglobin 30.5 pg (28.0-32.0); Mean Corpuscular Volume 89.5 fL (80.0-100.0)
[2025-04-29 09:12] LABS: Urine Protein, UAD Negative (Negative)
[2025-04-29 09:28] LABS: Alanine Aminotransferase 22 U/L (7-40); Albumin 4.6 g/dL (3.2-4.8); Alkaline Phosphatase 86 U/L (46-116); Anion Gap 11 (5-15); BUN/Creatinine Ratio 17.3 (10.0-20.0); Bilirubin, Total 0.6 mg/dL (0.2-1.0); Blood Urea Nitrogen 17 mg/dL (9-23); Calcium 10.1 mg/dL (8.7-10.4); Carbon Dioxide 27 mmol/L (20-31); Cholesterol 136 mg/dL (< 200); Glucose 103 mg/dL (74-106); HDL Cholesterol 49 mg/dL (40-59); Potassium 3.6 mmol/L (3.5-5.1); Total Protein 7.2 g/dL (5.7-8.2); Triglycerides 60 mg/dL (< 150)
[2025-04-29 09:32] LABS: Chloride 108 mmol/L (98-107); Sodium 146 mmol/L (136-145)
[2025-04-29 11:10] LABS: Prostate Specific Antigen 0.62 ng/mL (0.0-4.0)
[2025-04-29 11:13] LABS: Free T4 (Free Thyroxine) 0.93 ng/dL (0.89-1.76)
[2025-04-29 13:56] LABS: Total Cells Counted 100.0 (100)
== END | disposition home or self-care (01) ==
LOC: LAB 08:28
PROVIDERS: ATTEND Internal Medicine
DX: I12.9 Hypertensive chronic kidney disease with stage 1 through stage 4 chronic kidney disease, or unspecified chronic kidney disease (principal); N18.2 Chronic kidney disease, stage 2 (mild); E78.5 Hyperlipidemia, unspecified; Z00.01 Encounter for general adult medical examination with abnormal findings; D64.9 Anemia, unspecified
CPT/HCPCS: 36415; 80053; 80061; 81001; 83036; 84153; 84439; 84443; 85007; 85027

== ENCOUNTER 2025-06-01 13:37 | Outpatient (CLI) | payer OTHER ==
[2025-06-01 13:54] LABS: Hematocrit 44.4 % (41.0-53.0); Hemoglobin 15.6 g/dL (13.5-17.5); Mean Corpuscular Hemoglobin 31.5 pg (28.0-32.0); Mean Corpuscular Volume 89.5 fL (80.0-100.0); Nucleated Red Blood Cells % 0.1 %
[2025-06-01 14:37] LABS: HDL Cholesterol 44 mg/dL (40-59)
== END 2025-06-01 17:00 | disposition home or self-care (01) ==
LOC: LAB 13:37
PROVIDERS: ATTEND Internal Medicine
DX: D72.829 Elevated white blood cell count, unspecified (principal)
CPT/HCPCS: 36415; 83718; 83721; 84153; 85025

== ENCOUNTER → 2025-06-15 | Outpatient (CLI) | payer OTHER | END | disposition home or self-care (01) | LOC: LAB 12:24 | PROVIDERS: ATTEND Internal Medicine | DX: Z12.11 Encounter for screening for malignant neoplasm of colon (principal) | CPT/HCPCS: 82274 ==

== ENCOUNTER 2025-09-20 12:37 | Outpatient (CLI) | payer OTHER ==
--- NOTE | 2025-09-22 16:36 | DVHSR ---
APPROVED REPORT EXAM: Two-dimensional and M-mode echocardiogram with Doppler and color Doppler. INDICATION Hypertension RISK FACTORS Height: 70, Weight: 170 DIMENSIONS LVDd 4.4 (3.8-5.7cm) LA (2D) 2.9 (1.9-4.0cm) Aortic Root 3.6 (2.0-3.7cm) LVDs 2.7 (2.5-4.0cm) LA (MM) (1.9-4.0cm) Aortic Cusp Exc 1.7 (1.5-2.0cm) EF (%) 68.0 (55-70%) Rt. Atrium 2.9 (1.9-4.0cm) Asc. Aorta 3.3 cm IVSd 1.0 (0.7-1.1cm) RV (D) (1.8-2.4cm) PWd 1.0 (0.7-1.1cm) Mitral Valve Mitral Mitral Stenosis E wave 0.56m/s MV Mean GR. mmHg A wave 0.80m/s MV Peak GR. mmHg E/A ratio 0.7 2D MVA cm2 DECEL Time 183ms PRESS 1/2 Time ms Aortic Valve Aortic Valve Aortic Stenosis V1 1.14m/s AO Mean GR. 4mmHg V2 1.37m/s AO Peak GR. 7mmHg LVOT Diameter 1.9 (1.8-2.4cm) Doppler KHLOE 2.36cm2 AI P 1/2 Time 989.14ms Pulmonic Valve V2 0.74m/s Tricuspid Valve TR Velocity 1.69m/s RVSP 14mmHg Other Information Technically limited study due to body habitus. Conclusion SINUS RHYTHM. NORMAL CHAMBER SIZES. MILD AORTIC ROOT ENLARGEMENT. VALVES ARE NORMAL. EF OF 60% WITH NORMAL RV FUNCTION. MILD AORTIC INSUFFICIENCY. MILD TRICUSPID REGURGITATION. NO PERICARDIAL EFFUSION MASSES OR VEGETATIONS.
== END 2025-09-20 17:00 | disposition home or self-care (01) ==
LOC: XYW 12:37
PROVIDERS: ATTEND Internal Medicine
DX: I08.2 Rheumatic disorders of both aortic and tricuspid valves (principal); I10 Essential (primary) hypertension
CPT/HCPCS: 93306